=== PATIENT | female | born 1985 | race Caucasian/White ===

== ENCOUNTER 2025-01-06 05:20 | Day surgery (SDC) | payer OTHER, BC, SELFPAY ==
[2025-01-06] VITALS (13 sets, daily range): BP systolic 102–123; BP diastolic 61–79; PULSE 81–119; RESP 16–20; TEMP 36.6–37.4; O2SAT 89–100; BMI 26.6
[2025-01-06 06:29] LABS: Hematocrit 37.7 % (37-47); Hemoglobin 12.5 g/dL (12.0-15.0); Mean Corp Hgb Conc 33.2 g/dL (32-36); Mean Corpuscular Hgb 28.8 pg (27.0-32.0); Mean Corpuscular Volume 86.9 fL (81-99); Mean Platelet Vol. 9.3 fl (6.2-12.0); Platelet Count 320 K/mm3 (150-450); RBC Distribution Width CV 13.9 % (11.6-14.6); RBC Distribution Width SD 44.6 fl (35.1-43.9); Red Blood Count 4.34 M/mm3 (4.2-5.4); White Blood Count 6.2 K/mm3 (4.4-11.0)
[2025-01-06 06:33] LABS: Internal QC Validated? YES +Cl - CLEAR BKGD
[2025-01-06 06:34] LABS: Pregnancy, Urine Negative Negative
[2025-01-06] MEDS: Phenazopyridine 95 MG Tablet 190 MG PO (06:35)
[2025-01-06] MEDS: Celecoxib 200 MG Capsule 400 MG PO (06:35)
[2025-01-06] MEDS: Acetaminophen 500 MG Tablet 1000 MG PO (06:35)
[2025-01-06] MEDS: Enoxaparin 40 MG/0.4 ML Syringe SC (06:35)
[2025-01-06] MEDS: Gabapentin 600 MG Tablet PO (06:35)
[2025-01-06] MEDS: Lactated Ringers 1,000 ML 40 ML IV (06:35)
[2025-01-06 06:40] LABS: Bedside Glucose 108 mg/dL (74-106)
[2025-01-06 06:55] LABS: Anion Gap 12 (5-15); BUN 11 mg/dL (4-19); BUN/Creat Ratio 16.6 RATIO (10-20); Carbon Dioxide 21.6 mmol/L (22.0-29.0); Chloride 105 mmol/L (96-108); Creatinine, Serum 0.7 mg/dL (0.6-1.0); EST Glomerular Filtration Rate 115 (>60); Estimated Creatinine Clearance 108.77 ml/min; Glucose 112 mg/dL (70-99); Potassium 4.1 mmol/L (3.3-5.1); Sodium Level 138 mmol/L (133-145)
--- NOTE | 2025-01-06 07:20 | PCM.PRE.AN2 ---
ASA Classification* ASA Classification ASA Classification: 2 Assessment & Plan Anesthesia* Anesthesia Assessment Anesthesia Assessment: Discussed sedation and/or anesthesia options, risks, benefits, and alternatives with patient/parents/legal guardian/POA. Questions invited. The patient/parents/legal guardian/POA seems to understand and agrees to proceed with anesthesia plan. Reviewed the physical assessment, medical history, allergy history and patient home medications list prior to surgery/procedure/anesthetic and documented any changes. Performed airway and anesthesia risk assessments. Anesthesia Type Anesthesia Type: General History Source History Obtained from:: Patient and Chart Anesthesia Focused Assessment* Temperature: 99.1 F Pulse Rate: 81 Blood Pressure: 112/61 Respiratory Rate: 18 Pulse Ox: 98 Oxygen Delivery Method: Room Air Airway Assessment Mouth opens: >3 cm Mallampati Score: I Teeth Condition: Intact Neck Range of motion (ROM): Full ROM Focused Labs Anesthesia Preop lab: CBC WBC 6.2 K/mm3 (4.4-11.0) 01/06/25 05:49 01/06/25 RBC 4.34 M/mm3 (4.2-5.4) 01/06/25 05:49 01/06/25 Hgb 12.5 g/dL (12.0-15.0) 01/06/25 05:49 01/06/25 Hct 37.7 % (37-47) 01/06/25 05:49 01/06/25 Plt Count 320 K/mm3 (150-450) 01/06/25 05:49 01/06/25 CHEMISTRY Potassium 4.1 mmol/L (3.3-5.1) 01/06/25 05:49 01/06/25 Sodium 138 mmol/L (133-145) 01/06/25 05:49 01/06/25 Magnesium 2.0 mg/dL (1.5-2.2) 01/06/25 05:40 01/06/25 BUN 11 mg/dL (4-19) 01/06/25 05:49 01/06/25 Creatinine 0.7 mg/dL (0.6-1.0) 01/06/25 05:49 01/06/25 Glucose 112 mg/dL (70-99) H 01/06/25 05:49 01/06/25 POC Glucose 108 mg/dL (74-106) H 01/06/25 06:08 01/06/25 COAG Urine Test Negative Negative 01/06/25 05:40 01/06/25 Pre-Assessment Diagnosis/Proposed Procedure Planned Operative Procedure(s): (B) Hysterectomy,TLH, bilateral salpingectomy, cystoscopy, ERAS Anesthesia History Anesthesia History - medical insurance coding specialist: Anesthesia History - medical insurance coding specialist Hx Hospitalization No 12/23/24 09:53 Any Problems With Anesthesia No 12/23/24 09:53 Cholinesterase deficiency No 12/23/24 09:53 You/Your Family Experience No 12/23/24 09:53 fever (hyperthermia) with Relationship Recent Exposure to Contagious No 01/06/25 06:03 Disease Does patient have nerve No 12/23/24 09:53 stimulator Patient instructed to have device shut off --Does patient have Pacemaker No 01/06/25 06:04 or ICD? When Was Last Pacemaker Check QUESTION #4 FULL TEXT: You/Your Family Experience fever (hyperthermia) with Anesthesia Last Oral Intake Last Oral intake: Last Oral Intake NPO since 22:30 01/06/25 06:04 Meds taken in AM with sips of No 01/06/25 06:04 water? Meds patient instructed to take am of surgery PONV PONV - medical insurance coding specialist: PONV - medical insurance coding specialist Female Yes 12/23/24 09:53 HX of Motion Sickness No 12/23/24 09:53 HX of N/V After Surgery No 12/23/24 09:53 Non-Smoker Yes 12/23/24 09:53 Duration of Surgery greater Yes 12/23/24 09:53 than 60 minutes Number of Risk Factors 3 12/23/24 09:53 PONV Score Moderate Risk 12/23/24 09:53 Height & Weight Height & Weight: Anesthesia: Height & Weight Height 5 ft 5 in 01/06/25 06:04 Weight: 72.575 kg 01/06/25 06:04 Body Mass Index (BMI) 26.6 01/06/25 06:04 Respiratory Assessment Respiratory Assessment - medical insurance coding specialist: Respiratory Tract Infection Hx - medical insurance coding specialist Hx Respiratory Tract Infection Yes: FLU 12/16/24 12/23/24 09:53 Any additional information?: Yes Hx Respiratory Tract Infection: Yes (Pt better from respiratory symptoms 20 days ago.Had a stomach flu last wk) STOP Sleep Apnea STOP Sleep Apnea - medical insurance coding specialist: STOP Sleep Apnea - medical insurance coding specialist Hx Hypertension No 12/23/24 09:53 Hx Sleep Apnea No 12/23/24 09:53 CPAP BIPAP Do you snore loudly (louder No 12/23/24 09:53 than talking or can be heard Do you often feel tired/ No 12/23/24 09:53 fatigued/ sleepy during daytime? Has anyone observed you stop No 12/23/24 09:53 breathing during sleep? STOP Results Negative 12/23/24 09:53 QUESTION #5 FULL TEXT : Do you snore loudly (louder than talking or can be heard through closed doors)? Tobacco Use History Tobacco Use History - medical insurance coding specialist: Tobacco Use History - medical insurance coding specialist Tobacco Use Smoking Status Never smoker 12/23/24 09:53 Hx Tobacco Use No 12/23/24 09:53 Years Smoking Packs Smoked per Day Smoking Cessation Date was within the last 15 years Hx Smoking Cessation Date Hx Smoking Cessation Counseling Hematologic Medial History Hematologic Hx - medical insurance coding specialist: Hematologic Medical Hx - infusion therapy nurse Hx of Blood Transfusion No 12/23/24 09:53 Hx of Transfusion in last 3 No 12/23/24 09:53 Months Date of Last Transfusion (if within last 3 months) Ever experience any problems No 12/23/24 09:53 with transfusion(s)? Specify any problems Hx of Preganancy in last 3 N/A 12/23/24 09:53 Months Nurse Filling Out Transfusion NBUCHER 12/23/24 09:53 & Questions: Date: 12/23/24 12/23/24 09:53 Time: 09:55 12/23/24 09:53 Patient unable to answer at this time (ie. confused, unrespo /Reproduction History /Reproductive History - medical insurance coding specialist: /Reproductive Hx- medical insurance coding specialist Hx Now No 12/23/24 09:53 Gestational Age (in weeks): EDC: Hx Hx Para Hx Section SAB No 12/23/24 09:53 Active Medications Active Medications: Current Medications Generic Name Dose Route Start Last Admin Trade Name Freq PRN Reason Stop Dose Admin Acetaminophen 1,000 mg 01/06/25 07:35 01/06/25 06:35 Acetaminophen 500 Mg Tablet PO 01/06/25 07:36 1,000 mg PREOP ONE Administration Celecoxib 400 mg 01/06/25 07:35 01/06/25 06:35 Celecoxib 200 Mg Capsule PO 01/06/25 07:36 400 mg X1 ONE Administration Enoxaparin Sodium 40 mg 01/06/25 07:35 01/06/25 06:35 Enoxaparin 40 Mg/0.4 Ml Syringe SC 01/06/25 07:36 40 mg X1 ONE Administration Gabapentin 600 mg 01/06/25 07:35 01/06/25 06:35 Gabapentin 600 Mg Tablet PO 01/06/25 07:36 600 mg PREOP ONE Administration Lactated Ringer's 1,000 mls @ 40 mls/hr 01/06/25 07:35 01/06/25 06:35 IV 40 mls/hr .Q25H SHAWN Administration Cefazolin Sodium 2 gm/ N/A 20 mls @ 400 mls/hr 01/06/25 07:35 IV 01/06/25 07:37 PREOP ONE Insulin Human Lispro 0 unit 01/06/25 07:35 Insulin Lispro 100 Unit/Ml Insuln.Pen SC Q4H PRN PRN BG >/= 180, SEE PROTOCOL Protocol Ondansetron HCl 4 mg 01/06/25 07:35 Ondansetron 4 Mg/2 Ml Vial IV 01/06/25 07:36 X1 ONE Phenazopyridine HCl 190 mg 01/06/25 07:35 01/06/25 06:35 Phenazopyridine 95 Mg Tablet PO 01/06/25 07:36 190 mg X1 ONE Administration PFSH Medical History Depression Anxiety Low iron Anemia High cholesterol History of hiatal hernia Heartburn Gastric reflux Non-smoker Home Medications ?Medication ?Instructions ?Recorded ?Last Taken ?Type VITREX SAMS 1 tab PO DAILY 12/23/24 01/04/25 History ashwagandha extract 120 mg capsule 120 mg PO DAILY 12/23/24 01/04/25 History magnesium glycinate 100 mg (as 400 mg PO QHS 12/23/24 01/05/25 History glycinate) tablet (Mag Glycinate) melatonin 5 mg capsule 5 mg PO QHS 12/23/24 01/05/25 History omega-3 fatty acids 500 mg PO DAILY 12/23/24 01/04/25 History sertraline 50 mg tablet 50 mg PO QHS 12/23/24 01/05/25 History Allergy/AdvReac Type Severity Reaction Status Date / Time No Known Allergies Allergy Verified 01/06/25 06:01 Surgical History History of colonoscopy History of esophagogastroduodenoscopy (EGD) History of wisdom tooth extraction History of section (~2016) Social History Smoking Status: Never smoker Review of Systems (Anesthesia) ROS Narrative System reviewed and no additional complaints, except as documented.
--- NOTE | 2025-01-06 07:30 | HYST_PTH ---
PATIENT: JOÃO WALKER [place] [facility] [id number] AGE/SX: 39/F ROOM: RE01/06/[address]: Dr. Kate Li DO : 1985 BED: DIS: 01/06/2025 SPEC #: [id number] RECD: 01/06/25 13:40 STATUS: ANT SCOTT #: [id number] TONY: 01/06/25 07:[address]: aKte Li DEPT: SURGICAL PATHOLOGY RECD BY: Iglesia Salgado ENTERED: 01/06/25 14:07 SP TYPE: HYSTERECT OTHR DR: Massiel Duke, PUMPER GAGER-C Tissues: Uterus, NOS Procedures: Surgery Specimen Level V HEADER OPERATION: Hysterectomy, TLH, bilateral salpingectomy, cystoscopy PRE-OP DIAGNOSIS: Adenomyosis, menorrhagia, anemia TISSUE SUBMITTED: Lydia, cervix, bilateral fallopian tubes MICROSCOPIC DIAGNOSIS Uterus, cervix, bilateral fallopian tubes, hysterectomy, bilateral salpingectomy: Cervix - Chronic cystic cervicitis and squamous metaplasia. Endometrium - Proliferative endometrium. Myometrium - Focal adenomyosis. Bilateral fallopian tubes - no pathologic diagnosis. Bilateral paratubal cysts. 01/07/2025 MICROSCOPIC DESCRIPTION Slides are reviewed. GROSS DESCRIPTION Received in fixative is one container labeled with the patient's name and designated uterus, cervix, bilateral fallopian tubes. The specimen consists of a hysterectomy specimen consisting of uterus with cervix and detached bilateral fallopian tubes. The uterus with cervix weighs 117 gm and measures 10.5 x 8 x 4.5 cm. The serosal surface is kitchen glistening. The ectocervical mucosa show focal area of erosion. The external os is oval in contour. The endocervical canal measures 3.5 cm in length and the endocervical mucosa is kitchen glistening and unremarkable. Sections of the cervix reveal a few cysts filled with mucoid material. The triangular endometrial cavity measures 5 cm in length and 3.5 cm in width. The endometrium is kitchen, glistening without any mass lesions and measures 0.3 cm in thickness. Sections of uterine wall do not reveal any mass lesions and measures up to 2cm in thickness. Fallopian tubes are not identified as right or left and measures 5cm in length and 0.6cm in diameter and 6cm in length and 0.6cm in diameter. Fimbrial ends are identified. Both fallopian tubes show a paratubal cyst measuring 0.3cm in greatest dimension. Sections of fallopian tubes reveal unremarkable cut surfaces. Clamp Operator sections are submitted in eight cassettes as follows: 1 - anterior cervix, 2 - posterior cervix, 3 & 4 - anterior uterine wall, 5 & 6 - posterior uterine wall, 7- one fallopian tube and adjacent paratubal cyst, 8- second fallopian tube and adjacent paratubal cyst. SJ: 01/06/2025 TC:5 CPT: 38484
[2025-01-06] MEDS: Cefazolin 2 GM in Syringe 10 ML IV (07:41)
[2025-01-06] MEDS: metroNIDAZOLE 500 MG/100 ML BAG 100 MG IV (07:53)
[2025-01-06] MEDS: Magnesium 1 GM over 15 mins IV (08:13)
[2025-01-06] MEDS: Bupivacaine Mpf 0.5% 30 ML VIAL (08:35)
--- NOTE | 2025-01-06 09:50 | DCINST_ITS ---
Discharge Instructions Diet Discharge Diet: No restrictions DC O2, CPAP, BIPAP needs Home O2 Discharge instructions: No Dressing / Incision Discharge Activity: May Drive (Once you do not need pain medication. Once you feel strong enough to slam on a brake or turn a steering wheel sharply) and May Shower (Once you are more than 24 hours out from surgery) May resume sexual activity in: 6-8 weeks (Nothing in the vagina, and no soaking in water until your 6 week postop visit) Weight Bearing Status: Weight bearing as tolerated Lifting Restrictions: Nothing heavier than 10 pounds for 6 weeks. No pushing and pulling objects Dressing / Incision Call your doctor if your incision/area has: Continuous Slow Oozing, Sudden Increased Bleeding, Increased Pain/ Swelling, Increased Redness, Foul Smelling Discharge and Swelling at the incision site Call your doctor if you observe: Fever of 101 or Higher, Coldness, Increased Pain, Numbness or Tingling, Inability to urinate, Inability to have a bowel movement, Using more than 1 pad per hour, Shortness of breath, Dizziness, Swelling in the ankles, Chest pain, Increased palpitations (irregular heartbeat), Calf discomfort and Uncontrolled pain Suture Line Care: Avoid Pulling/Pushing and Avoid Pinching/Bending Change Dressing in: leave in place till F/U (The glue will peel up after a few days. You can peel it off or cut the edges. There are sutures under your skin that will dissolve) Cleanse incision/area with: Soap & Water Follow Up Care Please Follow Up With: Kate Li DO When: 1 week for initial post op visit to check incisions and go over surgery 6 weeks for post op exam to be cleared from restrictions Test Results: Test results from this visit will be discussed in further detail at your follow- up appointment, if applicable. Discharge Plan Admission Primary Reason for Your Visit: hysterectomy Attending Provider: Kate Li Primary Care Provider: Massiel Duke Instructions Patient Instructions: Hysterectomy Lap Dc Print Language: Mohawk Discharge Orders/Prescriptions Prescriptions: New oxycodone 5 mg tablet 5 mg PO Q6H PRN (Reason: pain) 7 Days Qty: 10 0RF Continued sertraline 50 mg tablet 50 mg PO QHS ashwagandha extract 120 mg capsule 120 mg PO DAILY VITREX SAMS 1 tab PO DAILY Mag Glycinate 100 mg tablet 400 mg PO QHS omega-3 fatty acids Capsule 500 mg PO DAILY melatonin 5 mg capsule 5 mg PO QHS Disposition Disposition (needs filled in before D/C Order can be placed): Home, Self Care
--- NOTE | 2025-01-06 10:04 | PCM.POST.ANE ---
Anesthesia: Postop Eval I Current Vital Signs Temperature: 98 F Pulse Rate: 117 Blood Pressure: 123/78 Respiratory Rate: 20 Pulse Ox: 96 Oxygen Delivery Method: Room Air Assessment Airway patent: Yes Spontaneous unlabored respirations: Yes Mental status: Awake nausea: No Vomiting: No Anesthesia Complication: No Fluid Hydration Crystalloid volume administer (ml): 1,000 Total IV fluid infused: 1,000 Progress Note Anesthesia document: Postop Eval 1 completed: Yes
--- NOTE | 2025-01-06 10:15 | OP.PCM_ITS ---
Problems Associated Problem List Diagnoses (1) DUB (dysfunctional uterine bleeding): (2) Menorrhagia: Operative Report (Standard) Operative Information Date of Procedure: 01/06/25 Pre-Operative Diagnosis: DUB, menorrhagia, history of anemia Post-Operative Diagnosis: As above Surgery/Procedure Performed: TLH, BS, cystoscopy medical physics researcher: Yes Motor Vehicle Dispatcher: Luisana Michelle Tasks completed by clinical assistant professor: Closing, Dissecting tissue, Insert Trochanter, Hemostasis: Electrocautery and Retracting Type of Anesthesia: General RN Documented Start/Stop Times: Operation Date: 01/06/25 07:30 Case Time Into Pre-Op 01/06/25 05:50 Out of Pre-Op 01/06/25 07:29 Anesthesia Start 01/06/25 07:34 Into Room 01/06/25 07:34 Procedure Start 01/06/25 08:06 Procedure End 01/06/25 09:50 Anesthesia End 01/06/25 09:59 Out of Room 01/06/25 09:59 Into Recovery 01/06/25 10:01 Out of Recovery 01/06/25 11:27 Into Phase II Recovery 01/06/25 11:28 Out of Phase II 01/06/25 14:16 Procedure Start Time: 08:06 Procedure Stop Time: 09:50 Select all DRAINS/GRAFTS/IMPLANTS that apply: None Special Medications: None Estimated Blood Loss: 75 mL Fluids Replaced: See anesthesia record Specimen collected: Yes Description of specimen(s) removed: Uterus, cervix, bilateral fallopian tubes Description of surgery: The patient was taken back to the operating room where general anesthesia was induced. She was prepped and draped in the dorsal lithotomy position using yellowfin stirrups. A saba catheter was placed in the bladder. From below, a weighted speculum was placed in the vagina. The anterior lip of the cervix was grasped with a single-tooth tenaculum. A uterine manipulator was placed in usual fashion. The single-tooth tenaculum and the weighted speculum were removed. Gloves were changed and attention was turned to the abdominal portion of the procedure. Local was infiltrated at all port sites. An infraumbilical incision was made with a scalpel to accommodate a 5 mm port. The 5 mm port was placed under direct visualization with the laparoscope. Once confirmed intraperitoneal, CO2 insufflation was initiated. No injury was noted upon entry. The patient was placed in Trendelenburg position. A right lateral 5 mm port was placed. A left lateral 5 mm port was placed. The uterus was upheld from below noting a normal- appearing uterus and bilateral adnexa. The pelvis was normal-appearing. All trocars were placed under direct visualization and no injury was noted to underlying structures. The left fallopian tube was followed out to the fimbriated end and elevated out of the pelvis. The LigaSure device was used to serially clamp, cauterize, and transect the mesosalpinx hugging adjacent to the fallopian tube until reaching level of the cornua. Once at the level of the cornua the fallopian tube was li gated and removed. The utero-ovarian ligament was then clamped, sealed, and cut. The ovarian pedicle was inspected and noted to be hemostatic. The same process was repeated on the right. The right fallopian tube was followed out to the fimbriated end and elevated out of the pelvis. The mesosalpinx was then serially clamped, cauterized, and transected using the LigaSure device until reaching the level of the cornua. Once at the level of the cornua the fallopian tube was transected and removed. The right utero-ovarian ligament was then clamped, sealed, and cut. The ovarian pedicle was slightly oozy but made hemostatic using the LigaSure device. The round ligament on the left side was clamped, cauterized, and cut. The anterior leaf of the broad ligament was then taken down on the left side dissecting down towards the peritoneal reflection at the base of the bladder and adjacent to the cervix. The same process was then repeated on the right so that both sides met, and the anterior leaflet was appropriately skeletonized. The ureters were well-visualized bilaterally. Once the bladder was dissected, the tissues were skeletonized on both sides. The uterine arteries were then bilaterally clamped and ligated. The pedicles were noted to be hemostatic. At the level of the plastic cup of the uterine manipulator, the vaginal vault was incised circumferentially with a monopolar hook. The uterus and cervix were then removed through the vagina and sent to pathology. The abdomen was exsufflated and attention was turned vaginally. The posterior cuff of the vagina was oozing. A 2-0 Vicryl was used in a running locked fashion to achieve hemostasis of the posterior cuff. 1-0 Vicryl was then used to close the vaginal cuff in a horizontal fashion, with interrupted figur e-of-eight sutures. The sutures were trimmed and hemostasis was noted. The Saba was then removed from the bladder. The cystoscope was performed noting a normal-appearing and intact bladder with bilateral ureteral jets. The cystoscope was then removed. A Saba was placed back into the bladder. A sponge stick was placed in the vagina. Gloves were changed and the abdomen was reinsufflated. A laparoscope was placed into the abdomen. The pelvis was irrigated. Hemostasis was confirmed. Cassandra was placed over the vaginal cuff and pedicles. Hemostasis was again confirmed. The abdomen was exsufflated, and the ports were removed. The skin was closed with 3-0 Monocryl and glue. The Saba and sponge stick were then removed vaginally. A vaginal sweep was performed. Instrument, sharp, sponge counts were correct. The patient was taken to the recovery in stable condition. Surgical Findings: Normal-appearing pelvis. Normal-appearing uterus and bilateral adnexa. Complications Complications: No Admit VTE Documentation VTE Present on Admission: No VTE Mechan Device Prophylaxis: SCD's
--- NOTE | 2025-01-06 12:10 | POSTOPAN2_ITS ---
Anesthesia Postop Eval I Sum Postop Eval Completion status Anesthesia document: Postop Eval 1 completed: Yes Anesthesia Postop Eval I Summary Anesthesia Postop Eval I Summary: Anesthesia Postop Eval I: Assessment Summary Airway patent Yes 01/06/25 10:06 [email or web address] [email or web address] Spontaneous unlabored Yes 01/06/25 10:06 TOWEL [email or web address] respirations Mental status Awake 01/06/25 10:06 TOWEL [email or web address] nausea No 01/06/25 10:06 TOWEL [email or web address] Vomiting No 01/06/25 10:06 TOWEL [email or web address] Anesthesia Postop Eval I: Fluid Summary Crystalloid volume administer 1,000 01/06/25 10:06 TOWEL [email or web address] (ml) Colloids volume administered ( ml) Blood Product volume administered (ml) Total IV fluid infused 1,000 01/06/25 10:06 TOWEL [email or web address] Anesthesia Postop Eval I: Summary Notes Anesthesia Complication No 01/06/25 10:06 TOWEL [email or web address] Anesthesia Complication Comment: Post-operative progress note Anesthesia: Postop Eval II Evaluation Mental status: Awake and Calm Pain Level: 0 nausea: No Vomiting: No Complications Anesthesia Complication: No
--- NOTE | 2025-01-06 12:10 | PCM.POSTANE2 ---
Anesthesia Postop Eval I Sum Postop Eval Completion status Anesthesia document: Postop Eval 1 completed: Yes Anesthesia Postop Eval I Summary Anesthesia Postop Eval I Summary: Anesthesia Postop Eval I: Assessment Summary Airway patent Yes 01/06/25 10:06 PAPER RECLAIMING MACHINE OPERATOR.[email or web address] Spontaneous unlabored Yes 01/06/25 10:06 PAPER RECLAIMING MACHINE OPERATOR.[email or web address] respirations Mental status Awake 01/06/25 10:06 PAPER RECLAIMING MACHINE OPERATOR.JSWI nausea No 01/06/25 10:06 PAPER RECLAIMING MACHINE OPERATOR.[email or web address] Vomiting No 01/06/25 10:06 PAPER RECLAIMING MACHINE OPERATOR.[email or web address] Anesthesia Postop Eval I: Fluid Summary Crystalloid volume administer 1,000 01/06/25 10:06 PAPER RECLAIMING MACHINE OPERATOR.JSWI (ml) Colloids volume administered ( ml) Blood Product volume administered (ml) Total IV fluid infused 1,000 01/06/25 10:06 PAPER RECLAIMING MACHINE OPERATOR.[email or web address] Anesthesia Postop Eval I: Summary Notes Anesthesia Complication No 01/06/25 10:06 PAPER RECLAIMING MACHINE OPERATOR.[email or web address] Anesthesia Complication Comment: Post-operative progress note Anesthesia: Postop Eval II Evaluation Mental status: Awake and Calm Pain Level: 0 nausea: No Vomiting: No Complications Anesthesia Complication: No
[2025-01-06] MEDS: Bacitracin/Polymin B Sulfate 3.5 GM OPTH.TUBE 1 APPLIC LEFT EYE (12:14)
[2025-01-06] MEDS: Tetracaine 0.5% Ophthalmic Bottle 1 DRP LEFT EYE (13:19)
== END 2025-01-06 14:17 | disposition home or self-care (01) ==
LOC: SDC 05:22 → AC 05:24
PROVIDERS: Anesthesiology; PCP Nurse Practitioner Family; Referring Provider Obstetrics & Gynecology; Visit Provider Obstetrics & Gynecology
PROC: 0UT94ZZ Resection of Uterus, Percutaneous Endoscopic Approach (ICD-10-PCS; CPT 58571; principal; 2025-01-06 07:10)
DX: N72 Inflammatory disease of cervix uteri (principal); N93.8 Other specified abnormal uterine and vaginal bleeding; N92.0 Excessive and frequent menstruation with regular cycle; F32.A Depression, unspecified; N87.9 Dysplasia of cervix uteri, unspecified; N83.8 Other noninflammatory disorders of ovary, fallopian tube and broad ligament; N80.03 Adenomyosis of the uterus; Z79.899 Other long term (current) drug therapy
CPT/HCPCS: 58571; 00840; 80048; 81025; 82962; 83735; 85027; 86850; 86900; 86901; 88307; J2405; J3475